=== PATIENT | male | born 1950 ===

== ENCOUNTER 2020-09-05 09:40 | Outpatient (CLI) | payer OTHER | END 2020-09-05 23:59 | disposition home or self-care (01) | LOC: 64 CT 09:40 | PROVIDERS: ATTEND Family Medicine | DX: N40.0 Benign prostatic hyperplasia without lower urinary tract symptoms (principal); K76.89 Other specified diseases of liver; N32.89 Other specified disorders of bladder; K63.89 Other specified diseases of intestine; M47.819 Spondylosis without myelopathy or radiculopathy, site unspecified | CPT/HCPCS: 74176 ==